=== PATIENT | male | born 1995 | race Caucasian/White ===

== ENCOUNTER 2024-04-03 21:56 | Emergency (ER) | payer BC, MEDICAID, OTHER | END 2024-04-03 23:38 | LOC: JP.ED 21:56 | DX: S00.81XA Abrasion of other part of head, initial encounter (principal); E03.9 Hypothyroidism, unspecified; Z88.0 Allergy status to penicillin; Z79.890 Hormone replacement therapy; Z79.899 Other long term (current) drug therapy; V91.89XA Other injury due to other accident to unspecified watercraft, initial encounter; Y93.89 Activity, other specified | CPT/HCPCS: 99283 ==